=== PATIENT | female | born 1980 | race Caucasian/White ===

== ENCOUNTER 2020-12-12 20:42 | Emergency (ER) | payer MEDICAID ==
[2020-12-12 21:07] LABS: BASOPHILS # (AUTO) 0.1 10^3/uL (0.0-0.1); BASOPHILS % (AUTO) 0.7 %; EOSINOPHILS # (AUTO) 0.4 10^3/uL (0.0-0.7); EOSINOPHILS % (AUTO) 3.7 %; HCT - HEMATOCRIT 44.2 % (37.0-47.0); HGB - HEMOGLOBIN 14.3 g/dL (12.0-16.0); LYMPHOCYTES # (AUTO) 2.4 10^3/uL (1.5-3.5); LYMPHOCYTES % (AUTO) 23.7 %; MEAN CORPUSCULAR HEMOGLOBIN 28.8 pg (27.0-31.0); MEAN CORPUSCULAR HGB CONC 32.4 g/dL (32.0-36.0); MEAN CORPUSCULAR VOLUME 88.9 fL (81.0-99.0); MEAN PLATELET VOLUME 9.8 fL (7.9-10.8); MONOCYTES # (AUTO) 0.6 10^3/uL (0.0-1.0); MONOCYTES % (AUTO) 6.1 %; NEUTROPHILS # (AUTO) 6.7 10^3/uL (1.5-6.6); NEUTROPHILS % (AUTO) 65.5 %; PLT - PLATELET COUNT 343 10^3/uL (130-450); RED BLOOD COUNT 4.97 10^6/uL (4.20-5.40); WHITE BLOOD COUNT 10.3 x10^3/uL (4.8-10.8)
[2020-12-12 21:20] LABS: ALBUMIN 4.3 g/dL (3.2-5.5); ALBUMIN/GLOBULIN RATIO 1.2 (1.0-2.2); BILIRUBIN,TOTAL 0.4 mg/dL (0.2-1.0); CALCIUM 9.1 mg/dL (8.5-10.3); CREATININE 0.9 mg/dL (0.4-1.0); POTASSIUM 4.2 mmol/L (3.5-5.0); TOTAL PROTEIN 7.8 g/dL (6.7-8.2)
[2020-12-12 21:29] LABS: BILIRUBIN,URINE NEGATIVE (NEGATIVE); GLUCOSE, URINE (UA) NEGATIVE (NEGATIVE); KETONES,URINE (UA) NEGATIVE (NEGATIVE); LEUKOCYTE ESTERASE, URINE NEGATIVE (NEGATIVE); NITRITE,URINE NEGATIVE (NEGATIVE); OCCULT BLOOD,URINE NEGATIVE (NEGATIVE); PH,URINE 5.5 PH (5.0-7.5); PROTEIN,URINE NEGATIVE (NEGATIVE); UROBILINOGEN,URINE 0.2 (NORMAL) E.U./dL (NORMAL)
[2020-12-12 21:35] LABS: CLARITY,URINE CLEAR (CLEAR)
[2020-12-12] MEDS ORDERED: KETOROLAC 30 MG/ML VIAL IVP STA (21:56)
[2020-12-12] MEDS ORDERED: IOPAMIDOL-300 100 ML VIAL ONE (22:15)
--- NOTE | 2020-12-12 22:16 | ED Physician Documentation ---
PD HPI ABD PAIN - Stated complaint Stated Complaint: L SIDE ABD/BACK PX - Chief complaint Chief Complaint: Abd Pain - History obtained from History obtained from: Patient - Additional information Additional information: Patient comes emergency department chief complaint of left lower quadrant and flank pain that all day also radiates into her back. She is started somewhere between 2 weeks and a month ago, but has suddenly gotten worse in the last few days. No nausea or vomiting. No hematuria grossly. Patient has had some urinary frequency but no dyspnea.. No change in bowel habits. No history of kidney stones. Patient has a history of ovarian cysts and does still have her ovaries but has had her her uterus removed. Patient is obese and does also have some low back problems. She states that if she lays on her side and stretches her left leg out, that this seems to the feeling of pain. She has felt more of a heaviness in her left lower abdomen than usual, although she does state that since having some any surgeries, she has a lot of scar tissue and that she always has a certain sense of pulling in the area. Patient has a history of an incisional hernia but this has been repaired. No inguinal hernias. No other complaints at this time. Review of Systems Ten Systems: 10 systems reviewed and negative Constitutional: reports: Reviewed and negative Eyes: reports: Reviewed and negative Ears: reports: Reviewed and negative Nose: reports: Reviewed and negative Throat: reports: Reviewed and negative Cardiac: reports: Reviewed and negative Respiratory: reports: Reviewed and negative GI: reports: Abdominal Pain. denies: Nausea, Vomiting, Constipation, Diarrhea : reports: Frequency. 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 - Present Medications Home Medications: Ambulatory Orders Medication Instructions Recorded Confirmed Sertraline HCl [Zoloft] 100 mg PO DAILY 03/23/18 12/12/20 Cyclobenzaprine [Flexeril] 10 mg PO TID PRN #20 tablet 12/12/20 LORazepam [Ativan] 0.5 mg PO DAILY PRN 12/12/20 12/12/20 - Allergies Allergies/Adverse Reactions: Allergies Allergy/AdvReac Type Severity Reaction Status Date / Time No Known Drug Allergies Allergy Verified 12/12/20 20:54 - Social History Does the pt smoke?: Yes Smoking Status: Current every day smoker Does the pt drink ETOH?: Yes Does the pt have substance abuse?: No - Immunizations Immunizations are current?: Yes - POLST Patient has POLST: No PD ED PE NORMAL - Vitals Vital signs reviewed: Yes - General General: Alert and oriented X 3, No acute distress, Well developed/nourished - HEENT HEENT: Atraumatic, PERRL, EOMI, Moist mucous membranes - Neck Neck: Supple, no meningeal sign - Cardiac Cardiac: RRR, No murmur, Strong equal pulses - Respiratory Respiratory: No respiratory distress, Clear bilaterally - Abdomen Abdomen: Soft, Other (Mild tenderness lateral aspect of left lower quadrant, no rebound or guarding. Patient is morbidly obese. Mild left flank tenderness.) - Back Back: Other (Point tenderness over left lumbar paraspinal musculature superiorly toward left CVA. Minimal spinal tenderness in same area. 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 # (Auto) 0.6 Eos # (Auto) 0.4 Baso # (Auto) 0.1 Absolute Nucleated RBC 0.00 Nucleated RBC % 0.0 Sodium 135 Potassium 4.2 Chloride 105 Carbon Dioxide 22 Anion Gap 8.0 BUN 16 Creatinine 0.9 Estimated GFR (MDRD) 69 L Glucose 104 H Calcium 9.1 Total Bilirubin 0.4 AST 18 ALT 20 Alkaline Phosphatase 45 Total Protein 7.8 Albumin 4.3 Globulin 3.5 Albumin/Globulin Ratio 1.2 Lipase 43 Urine Color YELLOW Urine Clarity CLEAR Urine pH 5.5 Ur Specific [place] 1.025 Urine Protein NEGATIVE Urine Glucose (UA) NEGATIVE Urine Ketones NEGATIVE Urine Occult Blood NEGATIVE Urine Nitrite NEGATIVE Urine Bilirubin NEGATIVE Urine Urobilinogen 0.2 (NORMAL) Ur Leukocyte Esterase NEGATIVE Ur Microscopic Review NOT INDICATED Urine Culture Comments NOT INDICATED - Rads (name of study) CT abd/pelvis Radiology: Prelim report reviewed (No acute disease. Scarring of right kidney and soft tissue mass right adrenal gland.), EMP read indepedently, See rad report PD MEDICAL DECISION MAKING - ED course Complexity details: reviewed results, re-evaluated patient, considered differential, d/w patient ED course: Patient's laboratory studies were unremarkable. She was sent for CT scan of the abdomen and pelvis and given a dose of Toradol here. CT scan showed Right renal scarring and a soft tissue mass of the right adrenal gland, both of which were already known to the patient. No acute findings noted by the radiologist. I discussed with the patient that she may have a musculoskeletal etiology of her back pain, given her obesity, history of back problems, and lack of findings to explain patient's symptoms and CT. We have discussed symptomatic management at home and the need for follow-up. The patient does not currently have a PCP but is in the process of getting insurance switched over to this area and will get established as soon as she does. We discussed the usual indications for return. Departure - Departure Disposition: 01 Home, Self Care Clinical Impression: Back pain Qualifiers: Back pain location: low back pain Chronicity: acute Back pain laterality: left Sciatica presence: without sciatica Qualified Code(s): M54.5 - Low back pain Abdominal pain Qualifiers: Abdominal location: left lower quadrant Qualified Code(s): R10.32 - Left lower quadrant pain Condition: Stable Instructions: ED Back Care Tips, ED Exercises Lumbar Muscles, ED Spasm Back No Trauma Prescriptions: Cyclobenzaprine [Flexeril] 10 mg PO TID PRN #20 tablet PRN Reason: Spasms Comments: Your labs and urinalysis look good. Your CT scan did not show any concerning findings. You were found to have a "nonspecific 3 centimeter right adrenal lesion". This is probably what has been seen on your adrenal gland before. No cysts of significant size were noted on your ovaries. No other abnormalities, including no kidney cyst stone, and no hernia, were visualized. You do have a little scarring on the right kidney. Most likely, your symptoms are coming from your back. You may take ibuprofen 800 mg every 8 hours and Flexeril as needed up to 3 times daily, for this. Please get established with primary care so that you can follow-up regarding any further concerns you may have.
[2020-12-12] MEDS ORDERED: IOPAMIDOL-300 100 ML VIAL IVP ONE (22:53)
[2020-12-12] MEDS ORDERED: CYCLOBENZAPRINE 10 MG Prepack 2 PO PRN (23:46)
[2020-12-13 00:02] VITALS: BP 138/87
--- NOTE | 2020-12-13 07:08 | CT Report ---
PROCEDURE: Abdomen/Pelvis W INDICATIONS: LLQ and flank pain CONTRAST: IV CONTRAST: Isovue 300 ml: 100 PO CONTRAST: *NO PO CONTRAST TECHNIQUE: After the administration of contrast, 5 mm thick sections acquired from the diaphragms to the sym physis. 5 mm thick coronal and sagittal reformats were acquired. For radiation dose reduction, the following was used: automated exposure control, adjustment of mA and/or kV according to patient size . COMPARISON: None. FINDINGS: Image quality: Excellent. ABDOMEN: Lung bases: Lung bases are clear. Heart size is normal. Solid organs: Liver and spleen are normal in size and enhancement. Gallbladder is status post estephania cystectomy. Biliary system is non dilated. Pancreas enhances normally. No adrenal nodules. Kidney s demonstrate normal size and enhancement, without hydronephrosis. Nonobstructing right renal stones and focal areas of right renal scarring nonspecific 3 cm right adrenal lesion measures soft tissue d ensity. Recommend follow-up noncontrast study to assess for adenoma. Peritoneum and bowel: Bowel loops demonstrate normal wall thickness and caliber. No free fluid or a ir. Nodes and vessels: No retroperitoneal or mesenteric adenopathy by size criteria. Aorta and inferior vena cava are normal in size. Miscellaneous: No ventral hernias. Periumbilical surgical scar with thickening in the anterior hollie toneum. Likely surgical mesh material. PELVIS: Genitourinary: Bladder wall thickness is normal. Miscellaneous: No inguinal hernias or adenopathy. Bones: No suspicious bony lesions. No vertebral body compression fractures. IMPRESSION: Chronic and incidental findings without acute process. Findings above correspond with preliminary findings by [facility]. Reviewed by: Kentrell Anderson on 12/13/2020 7:07 AM PDT Approved by: Kentrell Anderson on 12/13/2020 7:07 AM PDT Station ID: [id number]
== END 2020-12-13 00:11 | disposition home or self-care (01) ==
LOC: ED 20:42
DX: M54.5 Low back pain (principal); R10.32 Left lower quadrant pain; F17.200 Nicotine dependence, unspecified, uncomplicated
CPT/HCPCS: 36415; 74177; 80053; 81003; 83690; 85025; 96374; 99284; Q9967; 81001; 87086

== ENCOUNTER 2020-12-15 18:42 | Emergency (ER) | payer MEDICAID ==
[2020-12-15 18:47] VITALS: BP 150/90
[2020-12-15] MEDS ORDERED: CHERRY SYRUP 10 ML UDC PO ONE (20:47)
[2020-12-15] MEDS ORDERED: DEXAMETHASONE 10 MG/ML VIAL PO STA (20:47)
[2020-12-15] MEDS ORDERED: PENICILLIN VK 250 MG TABLET PO STA (20:47)
--- NOTE | 2020-12-15 21:03 | ED Physician Documentation ---
History of Present Illness - Stated complaint Stated Complaint: TOOTH PX/FACE SWELLING - Chief complaint Chief Complaint: Heent - History obtained from History obtained from: Patient - History of Present Illness Timing: Today Pain level max: 8 Pain level now: 7 - Additonal information Additional information: 40-year-old female presents to the emergency department with left-sided dental pain that started today. Is worsened throughout the day. Unable to see her dentist. Worse with palpation, eating, drinking. No fevers. No chills. Noted swelling to the left side of her face today. Review of Systems Constitutional: denies: Fever, Chills Respiratory: denies: Cough GI: denies: Abdominal Pain, Nausea, Vomiting, Diarrhea Skin: denies: Rash Musculoskeletal: denies: Neck pain, Back pain PD PAST MEDICAL HISTORY - Past Medical History Past Medical History: Yes Cardiovascular: None Respiratory: None Neuro: None Endocrine/Autoimmune: None GI: None Psych: Depression, Anxiety, Post traumatic stress disorder - Past Surgical History Past Surgical History: Yes General: Other /AMBULATORY CARE: Hysterectomy - Present Medications Home Medications: Ambulatory Orders Medication Instructions Recorded Confirmed Sertraline HCl [Zoloft] 100 mg PO DAILY 03/23/18 12/12/20 Cyclobenzaprine [Flexeril] 10 mg PO TID PRN #20 tablet 12/12/20 LORazepam [Ativan] 0.5 mg PO DAILY PRN 12/12/20 12/12/20 Ibuprofen [Motrin] 800 mg PO Q8H PRN #30 tablet 12/15/20 Penicillin V Potassium 500 mg PO Q6HR #40 tablet 12/15/20 - Allergies Allergies/Adverse Reactions: Allergies Allergy/AdvReac Type Severity Reaction Status Date / Time No Known Drug Allergies Allergy Verified 12/15/20 18:45 - Social History Does the pt smoke?: Yes Smoking Status: Current every day smoker Does the pt drink ETOH?: Yes Does the pt have substance abuse?: No - Immunizations Immunizations are current?: Yes - POLST Patient has POLST: No PD ED PE NORMAL - Vitals Vital signs reviewed: Yes - General General: Alert and oriented X 3, No acute distress - HEENT HEENT: Moist mucous membranes, Other (Normal phonation. No trismus. No stridor. No sublingual swelling. Mild swelling to the left cheek. No facial cellulitis. Tenderness over the left first lower premolar.) - Neck Neck: Supple, no meningeal sign, No adenopathy - Cardiac Cardiac: RRR - Respiratory Respiratory: No respiratory distress, Clear bilaterally - Derm Derm: Warm and dry - Neuro Neuro: Alert and oriented X 3 - Psych Psych: Normal mood, Normal affect Results - Vitals Vitals: Vital Signs - 24 hr 12/15/20 18:45 Temperature 36.5 C Heart Rate 84 Respiratory 16 Rate Blood Pressure 150/90 H O2 Saturation 97 Oxygen O2 Source Room air PD MEDICAL DECISION MAKING - ED course Complexity details: considered differential, d/w patient ED course: Patient with dental caries. Will place on antibiotics and pain medication for home. We will have her follow-up with her dentist this week. No drainable abscess. No Ludwigs angina. Patient counseled regarding signs and symptoms for which I believe and urgent re-evaluation would be necessary. Patient with good understanding of and agreement to plan and is comfortable going home at this time This document was made in part using voice recognition software. While efforts are made to proofread this document, sound alike and grammatical errors may occur. Departure - Departure Disposition: 01 Home, Self Care Clinical Impression: Dental caries Condition: Good Instructions: ED Tooth Pain Follow-Up: your,dentist this week [Other] Prescriptions: Penicillin V Potassium 500 mg PO Q6HR #40 tablet Ibuprofen [Motrin] 800 mg PO Q8H PRN #30 tablet PRN Reason: PAIN &/OR FEVER Comments: Your prescriptions were sent to [facility] in [place]. Please follow-up with your doctor for further care. Return if you worsen. Discharge Date/Time: 12/15/20 21:05
== END 2020-12-15 21:05 | disposition home or self-care (01) ==
LOC: ED 18:42
DX: K02.9 Dental caries, unspecified (principal); F17.200 Nicotine dependence, unspecified, uncomplicated
CPT/HCPCS: 99282; 99284; A9270

== ENCOUNTER 2021-12-04 09:51 | Outpatient (CLI) | payer MEDICAID ==
[2021-12-04 12:51] LABS: BASOPHILS # (AUTO) 0.1 10^3/uL (0.0-0.1); BASOPHILS % (AUTO) 0.7 %; EOSINOPHILS # (AUTO) 0.2 10^3/uL (0.0-0.7); EOSINOPHILS % (AUTO) 3.3 %; HCT - HEMATOCRIT 42.9 % (37.0-47.0); HGB - HEMOGLOBIN 14.3 g/dL (12.0-16.0); LYMPHOCYTES # (AUTO) 1.6 10^3/uL (1.5-3.5); LYMPHOCYTES % (AUTO) 24.3 %; MEAN CORPUSCULAR HEMOGLOBIN 29.4 pg (27.0-31.0); MEAN CORPUSCULAR HGB CONC 33.3 g/dL (32.0-36.0); MEAN CORPUSCULAR VOLUME 88.1 fL (81.0-99.0); MEAN PLATELET VOLUME 11.9 fL (7.9-10.8); MONOCYTES # (AUTO) 0.5 10^3/uL (0.0-1.0); MONOCYTES % (AUTO) 6.9 %; NEUTROPHILS # (AUTO) 4.3 10^3/uL (1.5-6.6); NEUTROPHILS % (AUTO) 64.7 %; PLT - PLATELET COUNT 231 10^3/uL (130-450); RED BLOOD COUNT 4.87 10^6/uL (4.20-5.40); RED CELL DISTRIBUTION WIDTH 12.9 % (12.0-15.0); WHITE BLOOD COUNT 6.7 x10^3/uL (4.8-10.8)
[2021-12-04 14:06] LABS: THYROID STIMULATING HORMONE 1.41 uIU/mL (0.34-5.60)
[2021-12-04 14:51] LABS: ALBUMIN 4.4 g/dL (3.2-5.5); ALBUMIN/GLOBULIN RATIO 1.4 (1.0-2.2); ALKALINE PHOSPHATASE 41 IU/L (42-121); ALT ALANINE AMINOTRANSFERASE 23 IU/L (10-60); AST ASPARTATE AMINOTRANSFERASE 18 IU/L (10-42); BILIRUBIN,TOTAL 0.6 mg/dL (0.2-1.0); BUN - BLOOD UREA NITROGEN 14 mg/dL (6-20); CALCIUM 9.8 mg/dL (8.5-10.3); CARBON DIOXIDE - CO2 27 mmol/L (21-32); CHLORIDE 104 mmol/L (101-111); CHOL/HDL RATIO 3.1 (<4.4); CHOLESTEROL 185 mg/dL; CREATININE 0.8 mg/dL (0.4-1.0); GFR - MDRD 79 (>89); GLUCOSE 107 mg/dL (70-100); HDL CHOLESTEROL 60 mg/dL; LDL CHOLESTEROL,CALCULATED 108 mg/dL; LDL/HDL RATIO 1.8 (<4.4); POTASSIUM 4.5 mmol/L (3.5-5.0); SODIUM 138 mmol/L (135-145); TOTAL PROTEIN 7.6 g/dL (6.7-8.2); TRIGLYCERIDES 87 mg/dL; VLDL CHOLESTEROL 17 mg/dL
[2021-12-04 16:34] LABS: ESTIMATED AVERAGE GLUCOSE 117 mg/dL (70-100); HEMOGLOBIN A1c% 5.7 % (4.27-6.07)
== END 2021-12-04 09:52 | disposition home or self-care (01) ==
LOC: LAB.N 09:51
PROVIDERS: ATTEND Nurse Practitioner Family
DX: R53.83 Other fatigue (principal); R53.81 Other malaise; E55.9 Vitamin D deficiency, unspecified; Z13.220 Encounter for screening for lipoid disorders; Z68.41 Body mass index [BMI] 40.0-44.9, adult; Z13.1 Encounter for screening for diabetes mellitus
CPT/HCPCS: 36415; 80053; 80061; 82306; 83036; 83721; 84443; 85025

== ENCOUNTER 2022-03-24 08:00 | Outpatient (CLI) | payer MEDICAID ==
[2022-03-24 20:41] LABS: HCT - HEMATOCRIT 43.8 % (37.0-47.0); HGB - HEMOGLOBIN 14.4 g/dL (12.0-16.0); MEAN CORPUSCULAR HEMOGLOBIN 28.5 pg (27.0-31.0); MEAN CORPUSCULAR HGB CONC 32.9 g/dL (32.0-36.0); MEAN CORPUSCULAR VOLUME 86.7 fL (81.0-99.0); MEAN PLATELET VOLUME 11.3 fL (7.9-10.8); RED BLOOD COUNT 5.05 10^6/uL (4.20-5.40); RED CELL DISTRIBUTION WIDTH 12.8 % (12.0-15.0); WHITE BLOOD COUNT 8.7 x10^3/uL (4.8-10.8)
[2022-03-24 20:49] LABS: CALCIUM 9.6 mg/dL (8.5-10.3); POTASSIUM 4.1 mmol/L (3.5-5.0)
== END 2022-03-24 23:59 | disposition home or self-care (01) ==
LOC: LAB.N 08:00
PROVIDERS: ATTEND Physician Assistant Medical
DX: N20.9 Urinary calculus, unspecified (principal)
CPT/HCPCS: 36415; 80048; 85027; 87086; 87181

== ENCOUNTER 2022-04-17 09:59 | Emergency (ER) | payer MEDICAID ==
--- NOTE | 2022-04-17 10:08 | ED Physician Documentation ---
PD HPI BACK PAIN - Stated complaint Stated Complaint: BACK PX - History obtained from History obtained from: Patient - History of Present Illness Timing - onset: How many weeks ago (has had right flank to abd pain for a few weeks. Seen at [facility] Mar 31 and Rx Tamsulosin presuming kidney stone. Had had ureteral stone Dx couple of months ago per patient, presumed not passed as yet. Had increased degree of pain since yesterday.) Timing - duration: Days, Weeks Timing - details: Gradual onset, Waxing and waning Location: Mid, Right Quality: Pain, Aching Associated symptoms: No: Fever, Weakness, Numbness Worsened by: No: Movement Contributing factors: Twisting. No: Lifting Similar symptoms before: Diagnosis (feels similar to prior kidney stones. Though review of prior visits 2017 and 2019 showed back/abd pain with negative ultrasounds and CT scan results.) Recently seen: Clinic (walk in clinic Mar 31.) Review of Systems Constitutional: denies: Fever, Chills GI: reports: Abdominal Pain : denies: Dysuria, Frequency, Discharge Skin: denies: Rash Musculoskeletal: reports: Back pain. 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 - Present Medications Home Medications: Ambulatory Orders Medication Instructions Recorded Confirmed Sertraline HCl [Zoloft] 100 mg PO DAILY 03/23/18 12/12/20 Cyclobenzaprine [Flexeril] 10 mg PO TID PRN #20 tablet 12/12/20 LORazepam [Ativan] 0.5 mg PO DAILY PRN 12/12/20 12/12/20 Ibuprofen [Motrin] 800 mg PO Q8H PRN #30 tablet 12/15/20 Penicillin V Potassium 500 mg PO Q6HR #40 tablet 12/15/20 HYDROcod/ACETAM 5/325 [[place] 5/325] 1 ea PO Q6H PRN #18 tablet 04/17/22 HYDROcod/ACETAM 5/325 [[place] 5/325] 1 ea PO Q6H PRN #18 tablet 04/17/22 Meloxicam [Mobic] 7.5 mg PO BID 10 Days #20 tablet 04/17/22 Ondansetron Odt [Zofran] 4 mg TL Q6H PRN #10 tablet 04/17/22 tiZANidine [Zanaflex] 4 mg PO Q8H PRN #25 tablet 04/17/22 - Allergies Allergies/Adverse Reactions: Allergies Allergy/AdvReac Type Severity Reaction Status Date / Time No Known Drug Allergies Allergy Verified 04/17/22 10:09 - Social History Does the pt smoke?: Yes Smoking Status: Current every day smoker Does the pt drink ETOH?: Yes Does the pt have substance abuse?: No - Immunizations Immunizations are current?: Yes - POLST Patient has POLST: No PD ED PE NORMAL - Vitals Vital signs reviewed: Yes - General General: Alert and oriented X 3, Well developed/nourished, Other (appears in pain. She did drive herself to ER so not wanting to give opioids. ) - Neck Neck: Supple, no meningeal sign, No adenopathy - Cardiac Cardiac: RRR, No murmur - Respiratory Respiratory: Clear bilaterally - Abdomen Abdomen: Normal bowel sounds, Soft, Non distended, Other (some tender RUQ to right flank area and CVA to percussion. No midline tenderness. No redness, rash, sores. ) - Derm Derm: Normal color, Warm and dry, No rash - Extremities Extremities: No edema, No calf tenderness / cord - Neuro Neuro: Alert and oriented X 3, No motor deficit, Normal speech Results - Vitals Vitals: Vital Signs - 24 hr 04/17/22 12:56 Heart Rate 88 Respiratory 18 Rate Blood Pressure 163/111 H O2 Saturation 98 Oxygen O2 Source Room air - Labs Labs: Laboratory Tests 04/17/22 04/17/22 04/17/22 10:12 10:17 10:17 WBC 9.7 RBC 5.03 Hgb 14.2 Hct 43.7 MCV 86.9 MCH 28.2 MCHC 32.5 RDW 12.9 Plt Count 338 MPV 9.7 Neut # (Auto) 7.2 H Lymph # (Auto) 1.6 [place] # (Auto) 0.5 Eos # (Auto) 0.3 Baso # (Auto) 0.1 Absolute Nucleated RBC 0.00 Nucleated RBC % 0.0 Sodium 135 Potassium 3.6 Chloride 101 Carbon Dioxide 23 Anion Gap 11.0 BUN 13 Creatinine 0.9 Estimated GFR (MDRD) 69 L Glucose 112 H Calcium 9.4 Total Bilirubin 0.6 AST 17 ALT 21 Alkaline Phosphatase 46 Total Protein 7.6 Albumin 4.2 Globulin 3.4 Albumin/Globulin Ratio 1.2 Lipase 36 Urine Color DARK YELLOW Urine Clarity CLEAR Urine pH 6.0 Ur Specific [place] >=1.030 H Urine Protein NEGATIVE Urine Glucose (UA) NEGATIVE Urine Ketones NEGATIVE Urine Occult Blood NEGATIVE Urine Nitrite NEGATIVE Urine Bilirubin NEGATIVE Urine Urobilinogen 0.2 (NORMAL) Ur Leukocyte Esterase NEGATIVE Ur Microscopic Review NOT INDICATED Urine Culture Comments NOT INDICATED Urine HCG, Qual NEGATIVE - Rads (name of study) abd/pelvic CT Radiology: Prelim report reviewed, See rad report (4 mm right renal stone. No ureteral stones nor hydronephorisis. Normal appendix. surgically absent GB. ) PD Medical Decision Making - ED course Complexity details: reviewed old records (no SOFYA form for prior opioid scripts. ), reviewed results, considered differential (pain character and location sounds like kidney stone. Review of prior visits from years ago and CT report showed though renal stone and not ureteral stone in the past. She says she had Dx of ureteral stone couple months ago at other facility. Those records not available at this time.), d/w patient Reviewed Lab Results: UA without signs of infection. CT abd/pelvis with 4 mm renal stone but no ureteral stones. The prior ureteral stone is gone. Normal appendix. No other acute abnormality. Normal lipase and LFTs. Unclear the cause of her back pain. Consider muscular or thoracic nerve root. Drug Therapy Requiring Monitoring for Toxicity: prescribed meloxicam and hydrocodone for pain. Presume musculoskeletal pain. Cautioned about side effects and potential constipation as well. No history of ulcers/PUD nor renal insufficiency, so short course NSAIDs should be okay. ED course: The patient called and states the prescriptions were not at [facility] where she is trying to pick them up. Her preferred pharmacy had been stated [facility] but she would like them now transmitted to [facility]. I canceled the prior ones and retransmitted now to [facility] instead. Departure - Departure Disposition: 01 Home, Self Care Clinical Impression: Nausea Back pain Qualifiers: Back pain location: low back pain Chronicity: acute Back pain laterality: unspecified Sciatica presence: without sciatica Qualified Code(s): M54.50 - Low back pain, unspecified Condition: Stable Record reviewed to determine appropriate education?: Yes Instructions: ED Low Back Pain Injury Prescriptions: Meloxicam [Mobic] 7.5 mg PO BID 10 Days #20 tablet HYDROcod/ACETAM 5/325 [[place] 5/325] 1 ea PO Q6H PRN #18 tablet PRN Reason: Pain HYDROcod/ACETAM 5/325 [[place] 5/325] 1 ea PO Q6H PRN #18 tablet PRN Reason: Pain tiZANidine [Zanaflex] 4 mg PO Q8H PRN #25 tablet PRN Reason: Spasms Ondansetron Odt [Zofran] 4 mg TL Q6H PRN #10 tablet PRN Reason: Nausea / Vomiting Comments: Your urine test is good without any signs of urinary tract infection/kidney infection. Your CT scan shows a's 4 mm stone in the kidney but not in a location to cause pain. There were no stones in the ureter so the previously identified ureteral kidney stone has passed. The CT scan did not identify any other obvious cause for the pain. With that in mind, I would presume your pain is more musculoskeletal back pain. As such I would treat it with anti-inflammatories and muscle relaxant. I think your nausea may be from the Flomax that had been prescribed. You can discontinue that since there is not a ureteral kidney stone anymore. Add Tylenol every 4-6 hours if needed for pain or hydrocodone every 6 hours if needed for worse pain. Heat and stretching for the back. Consider massage or chiropractic as well. Recheck or follow-up if not improving well over the next several days and resolved by 5 to 7 days. I sent your prescriptions to your preferred pharmacy. I am prescribing a short course of narcotic pain medication for you. These are potentially dangerous and addictive medications that should be used carefully. These medications may constipate you. Take an [id number] stool softener such as docusate twice daily with plenty of water while taking these m edications. If you go 24 hours without a bowel movement, take [id number] MiraLAX, per package instructions. Do not drink or drive while taking these medications. If you received narcotic or sedating medications while in the emergency department do not drive for 24 hours. Store this medication in a safe, secure place and out of reach of children. It is a violation of federal law to give or sell this medication to another person or to use in a manner other than prescribed. The ED will not refill narcotic prescriptions, including prescriptions lost or stolen. You can dispose of unwanted medications at the [facility]'s office or at several pharmacies such as [facility]. Discharge Date/Time: 04/17/22 12:56
[2022-04-17 10:09] VITALS: BP 163/111
[2022-04-17 10:22] LABS: BASOPHILS # (AUTO) 0.1 10^3/uL (0.0-0.1); BASOPHILS % (AUTO) 0.5 %; EOSINOPHILS # (AUTO) 0.3 10^3/uL (0.0-0.7); EOSINOPHILS % (AUTO) 2.6 %; HCT - HEMATOCRIT 43.7 % (37.0-47.0); HGB - HEMOGLOBIN 14.2 g/dL (12.0-16.0); LYMPHOCYTES # (AUTO) 1.6 10^3/uL (1.5-3.5); LYMPHOCYTES % (AUTO) 16.2 %; MEAN CORPUSCULAR HEMOGLOBIN 28.2 pg (27.0-31.0); MEAN CORPUSCULAR HGB CONC 32.5 g/dL (32.0-36.0); MEAN CORPUSCULAR VOLUME 86.9 fL (81.0-99.0); MEAN PLATELET VOLUME 9.7 fL (7.9-10.8); MONOCYTES # (AUTO) 0.5 10^3/uL (0.0-1.0); MONOCYTES % (AUTO) 5.6 %; NEUTROPHILS # (AUTO) 7.2 10^3/uL (1.5-6.6); NEUTROPHILS % (AUTO) 74.8 %; PLT - PLATELET COUNT 338 10^3/uL (130-450); RED BLOOD COUNT 5.03 10^6/uL (4.20-5.40); RED CELL DISTRIBUTION WIDTH 12.9 % (12.0-15.0); WHITE BLOOD COUNT 9.7 x10^3/uL (4.8-10.8)
[2022-04-17 10:31] LABS: BILIRUBIN,URINE NEGATIVE (NEGATIVE); CLARITY,URINE CLEAR (CLEAR); GLUCOSE, URINE (UA) NEGATIVE (NEGATIVE); KETONES,URINE (UA) NEGATIVE (NEGATIVE); LEUKOCYTE ESTERASE, URINE NEGATIVE (NEGATIVE); NITRITE,URINE NEGATIVE (NEGATIVE); OCCULT BLOOD,URINE NEGATIVE (NEGATIVE); PROTEIN,URINE NEGATIVE (NEGATIVE); UROBILINOGEN,URINE 0.2 (NORMAL) E.U./dL (NORMAL)
[2022-04-17 10:34] LABS: HCG UR QUAL NEGATIVE
[2022-04-17 10:36] LABS: ALBUMIN 4.2 g/dL (3.2-5.5); ALBUMIN/GLOBULIN RATIO 1.2 (1.0-2.2); BILIRUBIN,TOTAL 0.6 mg/dL (0.2-1.0); CALCIUM 9.4 mg/dL (8.5-10.3); CREATININE 0.9 mg/dL (0.4-1.0); POTASSIUM 3.6 mmol/L (3.5-5.0); TOTAL PROTEIN 7.6 g/dL (6.7-8.2)
[2022-04-17] MEDS ORDERED: ACETAMINOPHEN 325 MG TABLET PO STA (10:36)
[2022-04-17] MEDS ORDERED: SODIUM CHLORIDE 0.9% 1,000 ML IV STA (10:36)
[2022-04-17] MEDS ORDERED: ONDANSETRON 4 MG/2 ML VIAL IVP STA (10:36)
[2022-04-17] MEDS ORDERED: KETOROLAC 15 MG/ML VIAL IVP STA (10:36)
[2022-04-17] MEDS ORDERED: LIDOCAINE-MPF 2% 9 ML in SODIUM CHLORIDE 0.9% 50 ML IV STA (10:37)
--- OUTSIDE RECORDS SUMMARY | 2022-04-17 11:30 | EXTERNAL MEDICAL SUMMARY RPT | Continuity of Care Document ---
:1980 Author Organization [facility] Address [address] [place] [address] Phone Care Team Providers Name Role Phone David aHll Unavailable Unavailable Allergies and Intolerances date description facility type (no date) No Known Drug Allergies [facility] (unkn own) Encounters No information. Functional Status No information. Immunizations No information. Medications No information. Problems date description facility 2022-03-19 00:00 Renal colic on right side [facility] n[facility]il Procedures date description facility 2022-03-19 00:00 CT kidney, ureter and bladder [facility] ospital Results/Labs test date author facility value unit interpret ation Result panel 1 (unknown) (no (unknown) (unknown) (no value) (units (unk nown) date) unknown) (unknown) (no (unknown) (unknown) [id number] (units (unkn own) date) unknown) (unknown) (no (unknown) (unknown) 1. There is a 3 (units (unknown) date) mm stone within unknown) the bladder near the right UVJ, compatible with (unknown) (no (unknown) (unknown) 03/19/22 (units (unkno wn) date) unknown) (unknown) (no (unknown) (unknown) [address] [place] [address] (units (unknown) date) unknown) (unknown) (no (unknown) (unknown) 2. Multiple (units (un known) date) small-3 mm unknown) nonobstructive right renal calculi. (unknown) (no (unknown) (unknown) 3. A 2.7 x 3.3 cm (units (unknown) date) right adrenal unknown) adenoma. (unknown) (no (unknown) (unknown) 4. Hepatic (units (unk nown) date) steatosis. unknown) (unknown) (no (unknown) (unknown) ABDOMEN: (units (unkno wn) date) unknown) (unknown) (no (unknown) (unknown) Abdominal Nodes: (units (unknown) date) No enlarged unknown) retroperitoneal or mesenteric lymph nodes. (unknown) (no (unknown) (unknown) Accession Number: (units (unknown) date) [id number] unknown) (unknown) (no (unknown) (unknown) Adrenal Glands: (units (unknown) date) There is a 2.7 x unknown) 3.3 cm right adrenal nodule demonstrating CT (unknown) (no (unknown) (unknown) Age/Sex: 41 / F (units (unknown) date) Date of Service: unknown) (unknown) (no (unknown) (unknown) [place], [place] (units ( unknown) date) [id number] unknown) (unknown) (no (unknown) (unknown) Approved by: (units (u nknown) date) Sabrina Mcleod M.D. on unknown) 03/19/2022 at 10:17 (unknown) (no (unknown) (unknown) Axial sections (units (unknown) date) were acquired from unknown) the lung bases to the pubic symphysis. (unknown) (no (unknown) (unknown) Biliary ducts: (units (unknown) date) Unremarkable. unknown) (unknown) (no (unknown) (unknown) Bladder: Normal (units (unknown) date) wall thickness. unknown) There is a 3 mm stone within the ureter near (unknown) (no (unknown) (unknown) Bones: (units (unkno wn) date) Unremarkable. unknown) (unknown) (no (unknown) (unknown) COMPARISON: None. (units (unknown) date) unknown) (unknown) (no (unknown) (unknown) CT Scan Report (units (unknown) date) unknown) (unknown) (no (unknown) (unknown) Coronal and (units (un known) date) unknown) (unknown) (no (unknown) (unknown) : 1980 (units (unknown) date) Acct:[id number] unknown) (unknown) (no (unknown) (unknown) Dictated by: (units (u nknown) date) Sabrina Mcleod M.D. on unknown) 03/19/2022 at 8:57 (unknown) (no (unknown) (unknown) FINDINGS: (units (unkn own) date) unknown) (unknown) (no (unknown) (unknown) Gallbladder: (units (u nknown) date) Unremarkable. unknown) (unknown) (no (unknown) (unknown) Heart: No (units (unkn own) date) significant unknown) findings. (unknown) (no (unknown) (unknown) IMPRESSION: (units (un known) date) unknown) (unknown) (no (unknown) (unknown) INDICATIONS: (units (u nknown) date) Right side flank unknown) pain eval for stone (unknown) (no (unknown) (unknown) Image quality: (units (unknown) date) Excellent. unknown) (unknown) (no (unknown) (unknown) [facility] (units (unknown) date) unknown) (unknown) (no (unknown) (unknown) Left Kidney: No (units (unknown) date) stones or unknown) hydronephrosis. (unknown) (no (unknown) (unknown) Left Ureter: No (units (unknown) date) hydroureter. unknown) (unknown) (no (unknown) (unknown) Liver: Prominent (units (unknown) date) in size. Mild unknown) hepatic steatosis. (unknown) (no (unknown) (unknown) Loc: ED (units (unkno wn) date) unknown) (unknown) (no (unknown) (unknown) Lung bases: (units (un known) date) Unremarkable. unknown) (unknown) (no (unknown) (unknown) Miscellaneous: No (units (unknown) date) inguinal hernias unknown) are seen. (unknown) (no (unknown) (unknown) No significant (units (unknown) date) discrepancy with unknown) the administrative judge radiology preliminary report. (unknown) (no (unknown) (unknown) Normal (units (unkno wn) date) unknown) (unknown) (no (unknown) (unknown) Ordering (units (unkno wn) date) Provider: unknown) Manuel Toure D.O. (unknown) (no (unknown) (unknown) PELVIS: (units (unkno wn) date) unknown) (unknown) (no (unknown) (unknown) PROCEDURE: CT (units ( unknown) date) KIDNEY URETER unknown) BLADDER (KUB) (unknown) (no (unknown) (unknown) Pancreas: (units (unkn own) date) Unremarkable. unknown) (unknown) (no (unknown) (unknown) Patient: (units (unkno wn) date) Claudette Smith A unknown) MR#: [id number] (unknown) (no (unknown) (unknown) Pelvic Nodes: (units ( unknown) date) Unremarkable. unknown) (unknown) (no (unknown) (unknown) Pelvic Organs: (units (unknown) date) Unremarkable. unknown) (unknown) (no (unknown) (unknown) Peritoneum: No (units (unknown) date) abnormal unknown) intraperitoneal fluid. No free air. (unknown) (no (unknown) (unknown) Procedure: CT (units ( unknown) date) kidney ureter unknown) bladder (KUB) (unknown) (no (unknown) (unknown) Right Kidney: (units ( unknown) date) There are multiple unknown) small stones measuring 1-3 mm in right (unknown) (no (unknown) (unknown) Right Ureter: (units ( unknown) date) Mild hydroureter. unknown) No ureteral stones. (unknown) (no (unknown) (unknown) Signed (units (unkno wn) date) unknown) (unknown) (no (unknown) (unknown) Spleen: (units (unkno wn) date) Unremarkable. unknown) (unknown) (no (unknown) (unknown) Stomach and (units (un known) date) Bowel: Stomach, unknown) small bowel loops, and colon are unremarkable. (unknown) (no (unknown) (unknown) TECHNIQUE: (units (unk nown) date) unknown) (unknown) (no (unknown) (unknown) URINARY: (units (unkno wn) date) unknown) (unknown) (no (unknown) (unknown) UVJ. (units (unkno wn) date) unknown) (unknown) (no (unknown) (unknown) Ventral Wall: (units ( unknown) date) Probable prior unknown) ventral hernia repair. Mild fatty infiltration (unknown) (no (unknown) (unknown) Vessels: Aorta (units (unknown) date) and inferior vena unknown) cava are normal in size. (unknown) (no (unknown) (unknown) appendix. (units (unkn own) date) unknown) (unknown) (no (unknown) (unknown) automated (units (unkn own) date) exposure control, unknown) adjustment of mA and/or kV according to patient (unknown) (no (unknown) (unknown) compatible with a (units (unknown) date) benign adenoma. unknown) Left adrenal is normal. (unknown) (no (unknown) (unknown) density (units (unkno wn) date) unknown) (unknown) (no (unknown) (unknown) kidney. Mild (units (u nknown) date) unknown) (unknown) (no (unknown) (unknown) of the (units (unkno wn) date) unknown) (unknown) (no (unknown) (unknown) passed a stone. (units (unknown) date) There is mild unknown) right hydronephrosis and hydroureter. (unknown) (no (unknown) (unknown) recently (units (unkno wn) date) unknown) (unknown) (no (unknown) (unknown) rectus abdominus (units (unknown) date) muscles. unknown) (unknown) (no (unknown) (unknown) right (units (unkno wn) date) hydronephrosis is unknown) present. (unknown) (no (unknown) (unknown) sagittal (units (unkno wn) date) reformats were unknown) performed. For radiation dose reduction, the following (unknown) (no (unknown) (unknown) size. (units (unkno wn) date) unknown) (unknown) (no (unknown) (unknown) the right (units (unkn own) date) unknown) (unknown) (no (unknown) (unknown) was used: (units (unkn own) date) unknown) Result panel 2 (unknown) (no (unknown) (unknown) (no value) (units (unk nown) date) unknown) (unknown) (no (unknown) (unknown) [id number] (units (unkno wn) date) unknown) (unknown) (no (unknown) (unknown) 04:02 (units (unkno wn) date) unknown) (unknown) (no (unknown) (unknown) 10 mg PO Q6H (units (u nknown) date) PRN (Reason: unknown) pain) Qty: 14 0RF (unknown) (no (unknown) (unknown) 03/19/22 04:27 (units (unknown) date) unknown) (unknown) (no (unknown) (unknown) 03/19/22 (units (unkno wn) date) unknown) (unknown) (no (unknown) (unknown) Age/Sex: 41 / F (units (unknown) date) unknown) (unknown) (no (unknown) (unknown) Allergies (units (unkn own) date) unknown) (unknown) (no (unknown) (unknown) Allergy/AdvReac (units (unknown) date) Type Severity unknown) Reaction Status Date / Time (unknown) (no (unknown) (unknown) Bedside Urine (units ( unknown) date) Bilirubin - unknown) Negative (unknown) (no (unknown) (unknown) Bedside Urine (units ( unknown) date) Glucose Negative unknown) (unknown) (no (unknown) (unknown) Bedside Urine (units ( unknown) date) Ketone - unknown) Negative (unknown) (no (unknown) (unknown) Bedside Urine (units ( unknown) date) Leukocytes - unknown) Negative (unknown) (no (unknown) (unknown) Bedside Urine (units ( unknown) date) Nitrite - unknown) Negative (unknown) (no (unknown) (unknown) Bedside Urine (units ( unknown) date) Occult Blood unknown) (unknown) (no (unknown) (unknown) Bedside Urine (units ( unknown) date) Protein - unknown) Negative (unknown) (no (unknown) (unknown) Bedside Urine (units ( unknown) date) Urobilinogen - unknown) Negative (unknown) (no (unknown) (unknown) Bedside Urine (units ( unknown) date) pH 6.0 unknown) (unknown) (no (unknown) (unknown) Blood Pressure (units (unknown) date) 124/86 03/19/22 unknown) 04:02 (unknown) (no (unknown) (unknown) Blood Pressure (units (unknown) date) 124/86 unknown) (unknown) (no (unknown) (unknown) CT kidney (units (unkn own) date) ureter bladder unknown) (KUB) Stat (unknown) (no (unknown) (unknown) Chief (units (unkno wn) date) complaint: unknown) Urogenital-Femal e (unknown) (no (unknown) (unknown) Course (units (unkno wn) date) unknown) (unknown) (no (unknown) (unknown) : 1980 (units (unknown) date) Acct:[id number] unknown) (unknown) (no (unknown) (unknown) Date of (units (unkno wn) date) Service: unknown) 03/19/22 (unknown) (no (unknown) (unknown) Departure (units (unkn own) date) unknown) (unknown) (no (unknown) (unknown) Discharge Plan (units (unknown) date) unknown) (unknown) (no (unknown) (unknown) ED Orders (units (unkn own) date) unknown) (unknown) (no (unknown) (unknown) ER Physician: (units ( unknown) date) Manuel Toure unknown) D.O. (unknown) (no (unknown) (unknown) Emergency (units (unkn own) date) Report unknown) (unknown) (no (unknown) (unknown) Esterase (units (unkno wn) date) unknown) (unknown) (no (unknown) (unknown) Exam (units (unkno wn) date) unknown) (unknown) (no (unknown) (unknown) General (units (unkno wn) date) unknown) (unknown) (no (unknown) (unknown) HPI - General (units ( unknown) date) Adult unknown) (unknown) (no (unknown) (unknown) Initial Vital (units ( unknown) date) Signs unknown) (unknown) (no (unknown) (unknown) Initial Vital (units ( unknown) date) Signs: unknown) (unknown) (no (unknown) (unknown) [facility] (units (unknown) date) [address] unknown) [place] [address] (unknown) (no (unknown) (unknown) Lab Data (units (unkno wn) date) unknown) (unknown) (no (unknown) (unknown) Labs: (units (unkno wn) date) unknown) (unknown) (no (unknown) (unknown) Medical (units (unkno wn) date) Decision Making unknown) (unknown) (no (unknown) (unknown) Medication (units (unk nown) date) Instructions unknown) Recorded (unknown) (no (unknown) (unknown) Mode of (units (unkno wn) date) arrival: unknown) Ambulatory (unknown) (no (unknown) (unknown) No Action (units (unkn own) date) unknown) (unknown) (no (unknown) (unknown) No Known Drug (units ( unknown) date) Allergies unknown) Allergy Verified 10/24/21 20:35 (unknown) (no (unknown) (unknown) Ordered: (units (unkno wn) date) unknown) (unknown) (no (unknown) (unknown) Orders (units (unkno wn) date) unknown) (unknown) (no (unknown) (unknown) Oxygen Delivery (units (unknown) date) Method 03/19/22 unknown) 04:02 (unknown) (no (unknown) (unknown) Oxygen Delivery (units (unknown) date) Method Room Air unknown) (unknown) (no (unknown) (unknown) Patient History (units (unknown) date) unknown) (unknown) (no (unknown) (unknown) Patient: (units (unkno wn) date) Claudette Smith unknown) MR#: [id number] (unknown) (no (unknown) (unknown) Point of Care (units ( unknown) date) Testing unknown) (unknown) (no (unknown) (unknown) Point of care (units ( unknown) date) testing: unknown) (unknown) (no (unknown) (unknown) Test (units (unknown) date) Results Negative unknown) (unknown) (no (unknown) (unknown) Prescriptions: (units (unknown) date) unknown) (unknown) (no (unknown) (unknown) Previous Rx's (units ( unknown) date) unknown) (unknown) (no (unknown) (unknown) Pulse Oximetry (units (unknown) date) 97 03/19/22 unknown) 04:02 (unknown) (no (unknown) (unknown) Pulse Oximetry (units (unknown) date) 97 unknown) (unknown) (no (unknown) (unknown) Pulse Rate 78 (units ( unknown) date) 03/19/22 04:02 unknown) (unknown) (no (unknown) (unknown) Pulse Rate 78 (units ( unknown) date) unknown) (unknown) (no (unknown) (unknown) Related Data (units (u nknown) date) unknown) (unknown) (no (unknown) (unknown) Respiratory (units (un known) date) Rate 20 03/19/22 unknown) 04:02 (unknown) (no (unknown) (unknown) Respiratory (units (un known) date) Rate 20 unknown) (unknown) (no (unknown) (unknown) Signed By: (units (unk nown) date) unknown) (unknown) (no (unknown) (unknown) Smoking Status: (units (unknown) date) Current every unknown) day smoker (unknown) (no (unknown) (unknown) Social History (units (unknown) date) (Reviewed unknown) 10/24/21 @ 23:14 by David Hall DO) (unknown) (no (unknown) (unknown) Source: patient (units (unknown) date) unknown) (unknown) (no (unknown) (unknown) Stated (units (unkno wn) date) complaint: abd unknown) pain, back pain (unknown) (no (unknown) (unknown) Substance Use (units ( unknown) date) Type: marijuana unknown) (unknown) (no (unknown) (unknown) Temperature (units (un known) date) 97.6 F 03/19/22 unknown) 04:02 (unknown) (no (unknown) (unknown) Temperature (units (un known) date) 97.6 F unknown) (unknown) (no (unknown) (unknown) Time Seen by (units (u nknown) date) Provider: unknown) 03/19/22 04:01 (unknown) (no (unknown) (unknown) Urine Dip (units (unkn own) date) unknown) (unknown) (no (unknown) (unknown) Urine Specific (units (unknown) date) [place] 1.025 unknown) (unknown) (no (unknown) (unknown) Vital Signs - 8 (units (unknown) date) hr unknown) (unknown) (no (unknown) (unknown) Vital Signs (units (un known) date) unknown) (unknown) (no (unknown) (unknown) Vital signs: (units (u nknown) date) unknown) (unknown) (no (unknown) (unknown) alcohol intake (units (unknown) date) frequency: a few unknown) times a month (unknown) (no (unknown) (unknown) ketorolac 10 mg (units (unknown) date) tablet 10 mg PO unknown) Q6H PRN pain #14 tabs 10/24/21 (unknown) (no (unknown) (unknown) ketorolac 10 mg (units (unknown) date) tablet unknown) (unknown) (no (unknown) (unknown) tobacco type: (units ( unknown) date) cigarettes unknown) Result panel 3 (unknown) (no (unknown) (unknown) (no value) (units (unk nown) date) unknown) (unknown) (no (unknown) (unknown) [id number] (units (unkno wn) date) unknown) (unknown) (no (unknown) (unknown) 04:02 (units (unkno wn) date) unknown) (unknown) (no (unknown) (unknown) 10 mg PO Q6H PRN (units (unknown) date) (Reason: pain) Qty: unknown) 14 0RF (unknown) (no (unknown) (unknown) 03/19/22 04:27 (units (unknown) date) unknown) (unknown) (no (unknown) (unknown) 03/19/22 (units (unkno wn) date) unknown) (unknown) (no (unknown) (unknown) 41-year-old female (units (unknown) date) who is here for unknown) evaluation of right-sided lower back pain, (unknown) (no (unknown) (unknown) Age/Sex: 41 / F (units (unknown) date) unknown) (unknown) (no (unknown) (unknown) Allergies (units (unkn own) date) unknown) (unknown) (no (unknown) (unknown) Allergy/AdvReac (units (unknown) date) Type Severity unknown) Reaction Status Date / Time (unknown) (no (unknown) (unknown) Back/Spine/Pelvis (units (unknown) date) unknown) (unknown) (no (unknown) (unknown) Back: No CVA (units (u nknown) date) tenderness unknown) (unknown) (no (unknown) (unknown) Bedside Urine (units ( unknown) date) Bilirubin - unknown) Negative (unknown) (no (unknown) (unknown) Bedside Urine (units ( unknown) date) Glucose Negative unknown) (unknown) (no (unknown) (unknown) Bedside Urine (units ( unknown) date) Ketone - Negative unknown) (unknown) (no (unknown) (unknown) Bedside Urine (units ( unknown) date) Leukocytes - unknown) Negative (unknown) (no (unknown) (unknown) Bedside Urine (units ( unknown) date) Nitrite - Negative unknown) (unknown) (no (unknown) (unknown) Bedside Urine (units ( unknown) date) Occult Blood unknown) (unknown) (no (unknown) (unknown) Bedside Urine (units ( unknown) date) Protein - Negative unknown) (unknown) (no (unknown) (unknown) Bedside Urine (units ( unknown) date) Urobilinogen - unknown) Negative (unknown) (no (unknown) (unknown) Bedside Urine pH (units (unknown) date) 6.0 unknown) (unknown) (no (unknown) (unknown) Blood Pressure (units (unknown) date) 124/86 03/19/22 unknown) 04:02 (unknown) (no (unknown) (unknown) Blood Pressure (units (unknown) date) 124/86 unknown) (unknown) (no (unknown) (unknown) CT kidney ureter (units (unknown) date) bladder (KUB) Stat unknown) (unknown) (no (unknown) (unknown) Chief complaint: (units (unknown) date) Urogenital-Female unknown) (unknown) (no (unknown) (unknown) Const (units (unkno wn) date) unknown) (unknown) (no (unknown) (unknown) Constitutional (units (unknown) date) unknown) (unknown) (no (unknown) (unknown) Constitutional: (units (unknown) date) Reports system unknown) reviewed and no additional complaints, except as (unknown) (no (unknown) (unknown) Course (units (unkno wn) date) unknown) (unknown) (no (unknown) (unknown) : 1980 (units (unknown) date) Acct:[id number] unknown) (unknown) (no (unknown) (unknown) Date of Service: (units (unknown) date) 03/19/22 unknown) (unknown) (no (unknown) (unknown) Departure (units (unkn own) date) unknown) (unknown) (no (unknown) (unknown) Discharge Plan (units (unknown) date) unknown) (unknown) (no (unknown) (unknown) ED Orders (units (unkn own) date) unknown) (unknown) (no (unknown) (unknown) ER Physician: (units ( unknown) date) Manuel Toure D.O. unknown) (unknown) (no (unknown) (unknown) Emergency Report (units (unknown) date) unknown) (unknown) (no (unknown) (unknown) Esterase (units (unkno wn) date) unknown) (unknown) (no (unknown) (unknown) Exam (units (unkno wn) date) unknown) (unknown) (no (unknown) (unknown) Extrem (units (unkno wn) date) unknown) (unknown) (no (unknown) (unknown) GI (units (unkno wn) date) unknown) (unknown) (no (unknown) (unknown) Gastrointestinal (units (unknown) date) unknown) (unknown) (no (unknown) (unknown) Gastrointestinal: (units (unknown) date) Reports system unknown) reviewed and no additional complaints, except (unknown) (no (unknown) (unknown) General (units (unkno wn) date) unknown) (unknown) (no (unknown) (unknown) General: capillary (units (unknown) date) refill normal unknown) (unknown) (no (unknown) (unknown) General: (units (unkno wn) date) cooperative and unknown) comfortable (unknown) (no (unknown) (unknown) General: no rashes (units (unknown) date) or lesions noted unknown) (unknown) (no (unknown) (unknown) General: patient (units (unknown) date) alert, patient unknown) awake and moves all extremities (unknown) (no (unknown) (unknown) Genitourinary (units ( unknown) date) unknown) (unknown) (no (unknown) (unknown) Genitourinary: (units (unknown) date) Reports system unknown) reviewed and no additional complaints, except as (unknown) (no (unknown) (unknown) HENMT (units (unkno wn) date) unknown) (unknown) (no (unknown) (unknown) HPI - General (units ( unknown) date) Adult unknown) (unknown) (no (unknown) (unknown) HPI narrative: (units (unknown) date) unknown) (unknown) (no (unknown) (unknown) Having frequency (units (unknown) date) and hesitancy. She unknown) is never had a kidney stone in the past. (unknown) (no (unknown) (unknown) Head: normal to (units (unknown) date) inspection and unknown) normocephalic (unknown) (no (unknown) (unknown) History of Present (units (unknown) date) Illness unknown) (unknown) (no (unknown) (unknown) Initial Vital (units ( unknown) date) Signs unknown) (unknown) (no (unknown) (unknown) Initial Vital (units ( unknown) date) Signs: unknown) (unknown) (no (unknown) (unknown) Inspection: normal (units (unknown) date) to inspection unknown) (unknown) (no (unknown) (unknown) Integumentary/Jaz (units (unknown) date) sts unknown) (unknown) (no (unknown) (unknown) [facility] (units (unknown) date) [address] unknown) [place] [address] (unknown) (no (unknown) (unknown) Lab Data (units (unkno wn) date) unknown) (unknown) (no (unknown) (unknown) Labs: (units (unkno wn) date) unknown) (unknown) (no (unknown) (unknown) Limitations: no (units (unknown) date) limitations unknown) (unknown) (no (unknown) (unknown) Medical Decision (units (unknown) date) Making unknown) (unknown) (no (unknown) (unknown) Medication (units (unk nown) date) Instructions unknown) Recorded (unknown) (no (unknown) (unknown) Mode of arrival: (units (unknown) date) Ambulatory unknown) (unknown) (no (unknown) (unknown) Musculoskeletal (units (unknown) date) unknown) (unknown) (no (unknown) (unknown) Musculoskeletal: (units (unknown) date) Reports system unknown) reviewed and no additional complaints, except as (unknown) (no (unknown) (unknown) Neuro (units (unkno wn) date) unknown) (unknown) (no (unknown) (unknown) No Action (units (unkn own) date) unknown) (unknown) (no (unknown) (unknown) No Known Drug (units ( unknown) date) Allergies Allergy unknown) Verified 10/24/21 20:35 (unknown) (no (unknown) (unknown) Ordered: (units (unkno wn) date) unknown) (unknown) (no (unknown) (unknown) Orders (units (unkno wn) date) unknown) (unknown) (no (unknown) (unknown) Oxygen Delivery (units (unknown) date) Method 03/19/22 unknown) 04:02 (unknown) (no (unknown) (unknown) Oxygen Delivery (units (unknown) date) Method Room Air unknown) (unknown) (no (unknown) (unknown) Patient History (units (unknown) date) unknown) (unknown) (no (unknown) (unknown) Patient: (units (unkno wn) date) Claudette Smith A unknown) MR#: [id number] (unknown) (no (unknown) (unknown) Point of Care (units ( unknown) date) Testing unknown) (unknown) (no (unknown) (unknown) Point of care (units ( unknown) date) testing: unknown) (unknown) (no (unknown) (unknown) Test (units (unknown) date) Results Negative unknown) (unknown) (no (unknown) (unknown) Prescriptions: (units (unknown) date) unknown) (unknown) (no (unknown) (unknown) Previous Rx's (units ( unknown) date) unknown) (unknown) (no (unknown) (unknown) Pulse Oximetry 97 (units (unknown) date) 03/19/22 04:02 unknown) (unknown) (no (unknown) (unknown) Pulse Oximetry 97 (units (unknown) date) unknown) (unknown) (no (unknown) (unknown) Pulse Rate 78 (units ( unknown) date) 03/19/22 04:02 unknown) (unknown) (no (unknown) (unknown) Pulse Rate 78 (units ( unknown) date) unknown) (unknown) (no (unknown) (unknown) Related Data (units (u nknown) date) unknown) (unknown) (no (unknown) (unknown) Respiratory Rate (units (unknown) date) 20 03/19/22 04:02 unknown) (unknown) (no (unknown) (unknown) Respiratory Rate (units (unknown) date) 20 unknown) (unknown) (no (unknown) (unknown) Review of Systems (units (unknown) date) unknown) (unknown) (no (unknown) (unknown) She has had urinary (units (unknown) date) tract infections in unknown) the past she thought that maybe this was (unknown) (no (unknown) (unknown) Signed By: (units (unk nown) date) unknown) (unknown) (no (unknown) (unknown) Skin (units (unkno wn) date) unknown) (unknown) (no (unknown) (unknown) Skin/Breast: (units (u nknown) date) Reports system unknown) reviewed and no additional complaints, except as (unknown) (no (unknown) (unknown) Smoking Status: (units (unknown) date) Current every day unknown) smoker (unknown) (no (unknown) (unknown) Social History (units (unknown) date) (Reviewed 03/19/22 unknown) @ 05:16 by Manuel Toure DO) (unknown) (no (unknown) (unknown) Source: patient (units (unknown) date) unknown) (unknown) (no (unknown) (unknown) Stated complaint: (units (unknown) date) abd pain, back pain unknown) (unknown) (no (unknown) (unknown) Substance Use (units ( unknown) date) Type: marijuana unknown) (unknown) (no (unknown) (unknown) Temperature 97.6 F (units (unknown) date) 03/19/22 04:02 unknown) (unknown) (no (unknown) (unknown) Temperature 97.6 F (units (unknown) date) unknown) (unknown) (no (unknown) (unknown) Time Seen by (units (u nknown) date) Provider: 03/19/22 unknown) 04:01 (unknown) (no (unknown) (unknown) Urine Dip (units (unkn own) date) unknown) (unknown) (no (unknown) (unknown) Urine Specific (units (unknown) date) [place] 1.025 unknown) (unknown) (no (unknown) (unknown) Vital Signs - 8 hr (units (unknown) date) unknown) (unknown) (no (unknown) (unknown) Vital Signs (units (un known) date) unknown) (unknown) (no (unknown) (unknown) Vital signs: (units (u nknown) date) unknown) (unknown) (no (unknown) (unknown) a urinary tract (units (unknown) date) infection or kidney unknown) infection. No fevers. She was in quite a (unknown) (no (unknown) (unknown) alcohol intake (units (unknown) date) frequency: a few unknown) times a month (unknown) (no (unknown) (unknown) as documented (units ( unknown) date) unknown) (unknown) (no (unknown) (unknown) back pain for (units ( unknown) date) about the past week unknown) however the rest of her symptoms started (unknown) (no (unknown) (unknown) bit of discomfort (units (unknown) date) in route here to unknown) the emergency department that has improved (unknown) (no (unknown) (unknown) documented (units (unk nown) date) unknown) (unknown) (no (unknown) (unknown) flank pain that (units (unknown) date) radiates around to unknown) the front of her abdomen. She has had lower (unknown) (no (unknown) (unknown) ketorolac 10 mg (units (unknown) date) tablet 10 mg PO Q6H unknown) PRN pain #14 tabs 10/24/21 (unknown) (no (unknown) (unknown) ketorolac 10 mg (units (unknown) date) tablet unknown) (unknown) (no (unknown) (unknown) somewhat. Has not (units (unknown) date) tried anything for unknown) the symptoms prior to arrival (unknown) (no (unknown) (unknown) tobacco type: (units ( unknown) date) cigarettes unknown) (unknown) (no (unknown) (unknown) within the past (units (unknown) date) couple hours. She unknown) states she is having some problems urinating. Result panel 4 (unknown) (no (unknown) (unknown) (no value) (units (unk nown) date) unknown) (unknown) (no (unknown) (unknown) [id number] (units (unkno wn) date) unknown) (unknown) (no (unknown) (unknown) 04:02 (units (unkno wn) date) unknown) (unknown) (no (unknown) (unknown) 10 mg PO Q6H PRN (units (unknown) date) (Reason: pain) Qty: 14 unknown ) 0RF (unknown) (no (unknown) (unknown) 03/19/22 04:27 (units (unknown) date) unknown) (unknown) (no (unknown) (unknown) 03/19/22 (units (unkno wn) date) unknown) (unknown) (no (unknown) (unknown) 41-year-old female who (u nits (unknown) date) is here for evaluation unknown ) of right-sided lower back pain, (unknown) (no (unknown) (unknown) Age/Sex: 41 / F (units (unknown) date) unknown) (unknown) (no (unknown) (unknown) Allergies (units (unkn own) date) unknown) (unknown) (no (unknown) (unknown) Allergy/AdvReac Type (uni ts (unknown) date) Severity Reaction unknown) Status Date / Time (unknown) (no (unknown) (unknown) Back/Spine/Pelvis (units (unknown) date) unknown) (unknown) (no (unknown) (unknown) Back: No CVA (units (u nknown) date) tenderness unknown) (unknown) (no (unknown) (unknown) Bedside Urine (units ( unknown) date) Bilirubin - Negative unknown) (unknown) (no (unknown) (unknown) Bedside Urine Glucose (un its (unknown) date) Negative unknown) (unknown) (no (unknown) (unknown) Bedside Urine Ketone - (u nits (unknown) date) Negative unknown) (unknown) (no (unknown) (unknown) Bedside Urine (units ( unknown) date) Leukocytes - Negative unknown) (unknown) (no (unknown) (unknown) Bedside Urine Nitrite (un its (unknown) date) - Negative unknown) (unknown) (no (unknown) (unknown) Bedside Urine Occult (uni ts (unknown) date) Blood unknown) (unknown) (no (unknown) (unknown) Bedside Urine Protein (un its (unknown) date) - Negative unknown) (unknown) (no (unknown) (unknown) Bedside Urine (units ( unknown) date) Urobilinogen - Negative unknow n) (unknown) (no (unknown) (unknown) Bedside Urine pH 6.0 (uni ts (unknown) date) unknown) (unknown) (no (unknown) (unknown) Blood Pressure 124/86 (un its (unknown) date) 03/19/22 04:02 unknown) (unknown) (no (unknown) (unknown) Blood Pressure 124/86 (un its (unknown) date) unknown) (unknown) (no (unknown) (unknown) CT kidney ureter (units (unknown) date) bladder (KUB) Stat unknown) (unknown) (no (unknown) (unknown) CT scan - (units (unkn own) date) abdomen/pelvis: unknown) (unknown) (no (unknown) (unknown) Chief complaint: (units (unknown) date) Urogenital-Female unknown) (unknown) (no (unknown) (unknown) Const (units (unkno wn) date) unknown) (unknown) (no (unknown) (unknown) Constitutional (units (unknown) date) unknown) (unknown) (no (unknown) (unknown) Constitutional: (units (unknown) date) Reports system reviewed unknow n) and no additional complaints, except as (unknown) (no (unknown) (unknown) Course (units (unkno wn) date) unknown) (unknown) (no (unknown) (unknown) : 1980 (units (unknown) date) Acct:[id number] unknown) (unknown) (no (unknown) (unknown) Date of Service: (units (unknown) date) 03/19/22 unknown) (unknown) (no (unknown) (unknown) Departure (units (unkn own) date) unknown) (unknown) (no (unknown) (unknown) Discharge Plan (units (unknown) date) unknown) (unknown) (no (unknown) (unknown) ED Orders (units (unkn own) date) unknown) (unknown) (no (unknown) (unknown) ER Physician: (units ( unknown) date) Manuel Toure D.O. unknown) (unknown) (no (unknown) (unknown) Emergency Report (units (unknown) date) unknown) (unknown) (no (unknown) (unknown) Esterase (units (unkno wn) date) unknown) (unknown) (no (unknown) (unknown) Exam (units (unkno wn) date) unknown) (unknown) (no (unknown) (unknown) Extrem (units (unkno wn) date) unknown) (unknown) (no (unknown) (unknown) GI (units (unkno wn) date) unknown) (unknown) (no (unknown) (unknown) Gastrointestinal (units (unknown) date) unknown) (unknown) (no (unknown) (unknown) Gastrointestinal: (units (unknown) date) Reports system reviewed unknow n) and no additional complaints, except (unknown) (no (unknown) (unknown) General (units (unkno wn) date) unknown) (unknown) (no (unknown) (unknown) General: capillary (units (unknown) date) refill normal unknown) (unknown) (no (unknown) (unknown) General: cooperative (uni ts (unknown) date) and comfortable unknown) (unknown) (no (unknown) (unknown) General: no rashes or (un its (unknown) date) lesions noted unknown) (unknown) (no (unknown) (unknown) General: patient (units (unknown) date) alert, patient awake unknown) and moves all extremities (unknown) (no (unknown) (unknown) Genitourinary (units ( unknown) date) unknown) (unknown) (no (unknown) (unknown) Genitourinary: Reports (u nits (unknown) date) system reviewed and no unknown ) additional complaints, except as (unknown) (no (unknown) (unknown) HENMT (units (unkno wn) date) unknown) (unknown) (no (unknown) (unknown) HPI - General Adult (unit s (unknown) date) unknown) (unknown) (no (unknown) (unknown) HPI narrative: (units (unknown) date) unknown) (unknown) (no (unknown) (unknown) Having frequency and (uni ts (unknown) date) hesitancy. She is never unknow n) had a kidney stone in the past. (unknown) (no (unknown) (unknown) Head: normal to (units (unknown) date) inspection and unknown) normocephalic (unknown) (no (unknown) (unknown) History of Present (units (unknown) date) Illness unknown) (unknown) (no (unknown) (unknown) Imaging Data (units (u nknown) date) unknown) (unknown) (no (unknown) (unknown) Initial Vital Signs (unit s (unknown) date) unknown) (unknown) (no (unknown) (unknown) Initial Vital Signs: (uni ts (unknown) date) unknown) (unknown) (no (unknown) (unknown) Inspection: normal to (un its (unknown) date) inspection unknown) (unknown) (no (unknown) (unknown) Integumentary/Breasts (un its (unknown) date) unknown) (unknown) (no (unknown) (unknown) [facility] (uni ts (unknown) date) [address] [place] [address] [place], unknown ) [place] [address] (unknown) (no (unknown) (unknown) Lab Data (units (unkno wn) date) unknown) (unknown) (no (unknown) (unknown) Labs: (units (unkno wn) date) unknown) (unknown) (no (unknown) (unknown) Limitations: no (units (unknown) date) limitations unknown) (unknown) (no (unknown) (unknown) Medical Decision (units (unknown) date) Making unknown) (unknown) (no (unknown) (unknown) Medication (units (unk nown) date) Instructions Recorded unknown) (unknown) (no (unknown) (unknown) Mode of arrival: (units (unknown) date) Ambulatory unknown) (unknown) (no (unknown) (unknown) Musculoskeletal (units (unknown) date) unknown) (unknown) (no (unknown) (unknown) Musculoskeletal: (units (unknown) date) Reports system reviewed unknow n) and no additional complaints, except as (unknown) (no (unknown) (unknown) Neuro (units (unkno wn) date) unknown) (unknown) (no (unknown) (unknown) No Action (units (unkn own) date) unknown) (unknown) (no (unknown) (unknown) No Known Drug (units ( unknown) date) Allergies Allergy unknown) Verified 10/24/21 20:35 (unknown) (no (unknown) (unknown) Nonobstructing right (uni ts (unknown) date) nephrolithiasis unknown) (unknown) (no (unknown) (unknown) Ordered: (units (unkno wn) date) unknown) (unknown) (no (unknown) (unknown) Orders (units (unkno wn) date) unknown) (unknown) (no (unknown) (unknown) Oxygen Delivery Method (u nits (unknown) date) 03/19/22 04:02 unknown) (unknown) (no (unknown) (unknown) Oxygen Delivery Method (u nits (unknown) date) Room Air unknown) (unknown) (no (unknown) (unknown) Patient History (units (unknown) date) unknown) (unknown) (no (unknown) (unknown) Patient: (units (unkno wn) date) Claudette Smith MR#: unknown) M0 (unknown) (no (unknown) (unknown) Point of Care Testing (un its (unknown) date) unknown) (unknown) (no (unknown) (unknown) Point of care testing: (u nits (unknown) date) unknown) (unknown) (no (unknown) (unknown) Test Results (u nits (unknown) date) Negative unknown) (unknown) (no (unknown) (unknown) Prescriptions: (units (unknown) date) unknown) (unknown) (no (unknown) (unknown) Previous Rx's (units ( unknown) date) unknown) (unknown) (no (unknown) (unknown) Pulse Oximetry 97 (units (unknown) date) 03/19/22 04:02 unknown) (unknown) (no (unknown) (unknown) Pulse Oximetry 97 (units (unknown) date) unknown) (unknown) (no (unknown) (unknown) Pulse Rate 78 03/19/22 (u nits (unknown) date) 04:02 unknown) (unknown) (no (unknown) (unknown) Pulse Rate 78 (units ( unknown) date) unknown) (unknown) (no (unknown) (unknown) Radiologist's (units ( unknown) date) Impression: unknown) (unknown) (no (unknown) (unknown) Recently passed right (un its (unknown) date) renal calculus with unknown) mild residual hydroureteronephrosis (unknown) (no (unknown) (unknown) Related Data (units (u nknown) date) unknown) (unknown) (no (unknown) (unknown) Respiratory Rate 20 (unit s (unknown) date) 03/19/22 04:02 unknown) (unknown) (no (unknown) (unknown) Respiratory Rate 20 (unit s (unknown) date) unknown) (unknown) (no (unknown) (unknown) Review of Systems (units (unknown) date) unknown) (unknown) (no (unknown) (unknown) She has had urinary (units (unknown) date) tract infections in the unknow n) past she thought that maybe this was (unknown) (no (unknown) (unknown) Signed By: (units (unk nown) date) unknown) (unknown) (no (unknown) (unknown) Skin (units (unkno wn) date) unknown) (unknown) (no (unknown) (unknown) Skin/Breast: Reports (uni ts (unknown) date) system reviewed and no unknown ) additional complaints, except as (unknown) (no (unknown) (unknown) Smoking Status: (units (unknown) date) Current every day unknown) smoker (unknown) (no (unknown) (unknown) Social History (units (unknown) date) (Reviewed 03/19/22 @ unknown) 05:16 by Manuel Toure DO) (unknown) (no (unknown) (unknown) Source: patient (units (unknown) date) unknown) (unknown) (no (unknown) (unknown) Stated complaint: abd (un its (unknown) date) pain, back pain unknown) (unknown) (no (unknown) (unknown) Substance Use Type: (unit s (unknown) date) marijuana unknown) (unknown) (no (unknown) (unknown) Temperature 97.6 F (units (unknown) date) 03/19/22 04:02 unknown) (unknown) (no (unknown) (unknown) Temperature 97.6 F (units (unknown) date) unknown) (unknown) (no (unknown) (unknown) Time Seen by Provider: (u nits (unknown) date) 03/19/22 04:01 unknown) (unknown) (no (unknown) (unknown) Urine Dip (units (unkn own) date) unknown) (unknown) (no (unknown) (unknown) Urine Specific [place] (u nits (unknown) date) 1.025 unknown) (unknown) (no (unknown) (unknown) Vital Signs - 8 hr (units (unknown) date) unknown) (unknown) (no (unknown) (unknown) Vital Signs (units (un known) date) unknown) (unknown) (no (unknown) (unknown) Vital signs: (units (u nknown) date) unknown) (unknown) (no (unknown) (unknown) a urinary tract (units (unknown) date) infection or kidney unknown) infection. No fevers. She was in quite a (unknown) (no (unknown) (unknown) alcohol intake (units (unknown) date) frequency: a few times unknown ) a month (unknown) (no (unknown) (unknown) as documented (units ( unknown) date) unknown) (unknown) (no (unknown) (unknown) back pain for about (unit s (unknown) date) the past week however unknown) the rest of her symptoms started (unknown) (no (unknown) (unknown) bit of discomfort in (uni ts (unknown) date) route here to the unknown) emergency department that has improved (unknown) (no (unknown) (unknown) documented (units (unk nown) date) unknown) (unknown) (no (unknown) (unknown) flank pain that (units (unknown) date) radiates around to the unknown ) front of her abdomen. She has had lower (unknown) (no (unknown) (unknown) ketorolac 10 mg tablet (u nits (unknown) date) 10 mg PO Q6H PRN pain unknown) #14 tabs 10/24/21 (unknown) (no (unknown) (unknown) ketorolac 10 mg tablet (u nits (unknown) date) unknown) (unknown) (no (unknown) (unknown) somewhat. Has not (units (unknown) date) tried anything for the unknown ) symptoms prior to arrival (unknown) (no (unknown) (unknown) tobacco type: (units ( unknown) date) cigarettes unknown) (unknown) (no (unknown) (unknown) within the past couple (u nits (unknown) date) hours. She states she unknown) is having some problems urinating. Result panel 5 (unknown) (no (unknown) (unknown) (no value) (units (unk nown) date) unknown) (unknown) (no (unknown) (unknown) <Electronically signed (u nits (unknown) date) by Manuel Toure, unknown) D.O.> (unknown) (no (unknown) (unknown) [id number] (units (unkno wn) date) unknown) (unknown) (no (unknown) (unknown) 04:02 (units (unkno wn) date) unknown) (unknown) (no (unknown) (unknown) 10 mg PO Q6H PRN (units (unknown) date) (Reason: pain) Qty: 14 unknown ) 0RF (unknown) (no (unknown) (unknown) 03/19/22 04:27 (units (unknown) date) unknown) (unknown) (no (unknown) (unknown) 03/19/22 0607 (units ( unknown) date) unknown) (unknown) (no (unknown) (unknown) 03/19/22 (units (unkno wn) date) unknown) (unknown) (no (unknown) (unknown) 3 cm right adrenal (units (unknown) date) cystic mass unknown) (unknown) (no (unknown) (unknown) 41-year-old female who (u nits (unknown) date) is here for evaluation unknown ) of right-sided lower back pain, (unknown) (no (unknown) (unknown) Activity (units (unkno wn) date) Restrictions/Additional unknow n) Instructions: (unknown) (no (unknown) (unknown) Age/Sex: 41 / F (units (unknown) date) unknown) (unknown) (no (unknown) (unknown) Allergies (units (unkn own) date) unknown) (unknown) (no (unknown) (unknown) Allergy/AdvReac Type (uni ts (unknown) date) Severity Reaction unknown) Status Date / Time (unknown) (no (unknown) (unknown) Back/Spine/Pelvis (units (unknown) date) unknown) (unknown) (no (unknown) (unknown) Back: No CVA (units (u nknown) date) tenderness unknown) (unknown) (no (unknown) (unknown) Bedside Urine (units ( unknown) date) Bilirubin - Negative unknown) (unknown) (no (unknown) (unknown) Bedside Urine Glucose (un its (unknown) date) Negative unknown) (unknown) (no (unknown) (unknown) Bedside Urine Ketone - (u nits (unknown) date) Negative unknown) (unknown) (no (unknown) (unknown) Bedside Urine (units ( unknown) date) Leukocytes - Negative unknown) (unknown) (no (unknown) (unknown) Bedside Urine Nitrite (un its (unknown) date) - Negative unknown) (unknown) (no (unknown) (unknown) Bedside Urine Occult (uni ts (unknown) date) Blood unknown) (unknown) (no (unknown) (unknown) Bedside Urine Protein (un its (unknown) date) - Negative unknown) (unknown) (no (unknown) (unknown) Bedside Urine (units ( unknown) date) Urobilinogen - Negative unknow n) (unknown) (no (unknown) (unknown) Bedside Urine pH 6.0 (uni ts (unknown) date) unknown) (unknown) (no (unknown) (unknown) Blood Pressure 124/86 (un its (unknown) date) 03/19/22 04:02 unknown) (unknown) (no (unknown) (unknown) Blood Pressure 124/86 (un its (unknown) date) unknown) (unknown) (no (unknown) (unknown) CT kidney ureter (units (unknown) date) bladder (KUB) Stat unknown) (unknown) (no (unknown) (unknown) CT scan - (units (unkn own) date) abdomen/pelvis: unknown) (unknown) (no (unknown) (unknown) Chief complaint: (units (unknown) date) Urogenital-Female unknown) (unknown) (no (unknown) (unknown) Clinical Impression: (uni ts (unknown) date) unknown) (unknown) (no (unknown) (unknown) Const (units (unkno wn) date) unknown) (unknown) (no (unknown) (unknown) Constitutional (units (unknown) date) unknown) (unknown) (no (unknown) (unknown) Constitutional: (units (unknown) date) Reports system reviewed unknow n) and no additional complaints, except as (unknown) (no (unknown) (unknown) Course (units (unkno wn) date) unknown) (unknown) (no (unknown) (unknown) : 1980 (units (unknown) date) Acct:[id number] unknown) (unknown) (no (unknown) (unknown) Date of Service: (units (unknown) date) 03/19/22 unknown) (unknown) (no (unknown) (unknown) Departure (units (unkn own) date) unknown) (unknown) (no (unknown) (unknown) Discharge Plan (units (unknown) date) unknown) (unknown) (no (unknown) (unknown) ED Orders (units (unkn own) date) unknown) (unknown) (no (unknown) (unknown) ER Physician: (units ( unknown) date) Manuel Toure D.O. unknown) (unknown) (no (unknown) (unknown) Emergency Report (units (unknown) date) unknown) (unknown) (no (unknown) (unknown) Esterase (units (unkno wn) date) unknown) (unknown) (no (unknown) (unknown) Exam (units (unkno wn) date) unknown) (unknown) (no (unknown) (unknown) Extrem (units (unkno wn) date) unknown) (unknown) (no (unknown) (unknown) GI (units (unkno wn) date) unknown) (unknown) (no (unknown) (unknown) Gastrointestinal (units (unknown) date) unknown) (unknown) (no (unknown) (unknown) Gastrointestinal: (units (unknown) date) Reports system reviewed unknow n) and no additional complaints, except (unknown) (no (unknown) (unknown) General (units (unkno wn) date) unknown) (unknown) (no (unknown) (unknown) General: capillary (units (unknown) date) refill normal unknown) (unknown) (no (unknown) (unknown) General: cooperative (uni ts (unknown) date) and comfortable unknown) (unknown) (no (unknown) (unknown) General: no rashes or (un its (unknown) date) lesions noted unknown) (unknown) (no (unknown) (unknown) General: patient (units (unknown) date) alert, patient awake unknown) and moves all extremities (unknown) (no (unknown) (unknown) Genitourinary (units ( unknown) date) unknown) (unknown) (no (unknown) (unknown) Genitourinary: Reports (u nits (unknown) date) system reviewed and no unknown ) additional complaints, except as (unknown) (no (unknown) (unknown) HENMT (units (unkno wn) date) unknown) (unknown) (no (unknown) (unknown) HPI - General Adult (unit s (unknown) date) unknown) (unknown) (no (unknown) (unknown) HPI narrative: (units (unknown) date) unknown) (unknown) (no (unknown) (unknown) Having frequency and (uni ts (unknown) date) hesitancy. She is never unknow n) had a kidney stone in the past. (unknown) (no (unknown) (unknown) Head: normal to (units (unknown) date) inspection and unknown) normocephalic (unknown) (no (unknown) (unknown) History of Present (units (unknown) date) Illness unknown) (unknown) (no (unknown) (unknown) Imaging Data (units (u nknown) date) unknown) (unknown) (no (unknown) (unknown) Initial Vital Signs (unit s (unknown) date) unknown) (unknown) (no (unknown) (unknown) Initial Vital Signs: (uni ts (unknown) date) unknown) (unknown) (no (unknown) (unknown) Inspection: normal to (un its (unknown) date) inspection unknown) (unknown) (no (unknown) (unknown) Instructions: DI for (uni ts (unknown) date) Kidney Stones unknown) (unknown) (no (unknown) (unknown) Integumentary/Breasts (un its (unknown) date) unknown) (unknown) (no (unknown) (unknown) [facility] (uni ts (unknown) date) [address] [place], unknown ) [place] [address] (unknown) (no (unknown) (unknown) Lab Data (units (unkno wn) date) unknown) (unknown) (no (unknown) (unknown) Labs: (units (unkno wn) date) unknown) (unknown) (no (unknown) (unknown) Limitations: no (units (unknown) date) limitations unknown) (unknown) (no (unknown) (unknown) MDM Narrative (units ( unknown) date) unknown) (unknown) (no (unknown) (unknown) Medical Decision (units (unknown) date) Making unknown) (unknown) (no (unknown) (unknown) Medical decision (units (unknown) date) making narrative: unknown) (unknown) (no (unknown) (unknown) Medication (units (unk nown) date) Instructions Recorded unknown) (unknown) (no (unknown) (unknown) Mode of arrival: (units (unknown) date) Ambulatory unknown) (unknown) (no (unknown) (unknown) Musculoskeletal (units (unknown) date) unknown) (unknown) (no (unknown) (unknown) Musculoskeletal: (units (unknown) date) Reports system reviewed unknow n) and no additional complaints, except as (unknown) (no (unknown) (unknown) Neuro (units (unkno wn) date) unknown) (unknown) (no (unknown) (unknown) No Action (units (unkn own) date) unknown) (unknown) (no (unknown) (unknown) No Known Drug (units ( unknown) date) Allergies Allergy unknown) Verified 10/24/21 20:35 (unknown) (no (unknown) (unknown) Nonobstructing right (uni ts (unknown) date) nephrolithiasis unknown) (unknown) (no (unknown) (unknown) Ordered: (units (unkno wn) date) unknown) (unknown) (no (unknown) (unknown) Orders (units (unkno wn) date) unknown) (unknown) (no (unknown) (unknown) Oxygen Delivery Method (u nits (unknown) date) 03/19/22 04:02 unknown) (unknown) (no (unknown) (unknown) Oxygen Delivery Method (u nits (unknown) date) Room Air unknown) (unknown) (no (unknown) (unknown) Patient Disposition: (uni ts (unknown) date) Home unknown) (unknown) (no (unknown) (unknown) Patient History (units (unknown) date) unknown) (unknown) (no (unknown) (unknown) Patient: (units (unkno wn) date) Claudette Smith MR#: unknown) M0 (unknown) (no (unknown) (unknown) Point of Care Testing (un its (unknown) date) unknown) (unknown) (no (unknown) (unknown) Point of care testing: (u nits (unknown) date) unknown) (unknown) (no (unknown) (unknown) Test Results (u nits (unknown) date) Negative unknown) (unknown) (no (unknown) (unknown) Prescriptions: (units (unknown) date) unknown) (unknown) (no (unknown) (unknown) Previous Rx's (units ( unknown) date) unknown) (unknown) (no (unknown) (unknown) Pulse Oximetry 97 (units (unknown) date) 03/19/22 04:02 unknown) (unknown) (no (unknown) (unknown) Pulse Oximetry 97 (units (unknown) date) unknown) (unknown) (no (unknown) (unknown) Pulse Rate 78 03/19/22 (u nits (unknown) date) 04:02 unknown) (unknown) (no (unknown) (unknown) Pulse Rate 78 (units ( unknown) date) unknown) (unknown) (no (unknown) (unknown) Radiologist's (units ( unknown) date) Impression: unknown) (unknown) (no (unknown) (unknown) Recently passed right (un its (unknown) date) renal calculus with unknown) mild residual hydroureteronephrosis (unknown) (no (unknown) (unknown) Recommend that she (units (unknown) date) stay hydrated. Contact unknown ) your primary doctor for follow-up. (unknown) (no (unknown) (unknown) Related Data (units (u nknown) date) unknown) (unknown) (no (unknown) (unknown) Renal colic on right (uni ts (unknown) date) side unknown) (unknown) (no (unknown) (unknown) Respiratory Rate 20 (unit s (unknown) date) 03/19/22 04:02 unknown) (unknown) (no (unknown) (unknown) Respiratory Rate 20 (unit s (unknown) date) unknown) (unknown) (no (unknown) (unknown) Return to the (units ( unknown) date) emergency department unknown) for any new or worsening symptoms. (unknown) (no (unknown) (unknown) Review of Systems (units (unknown) date) unknown) (unknown) (no (unknown) (unknown) She has had urinary (units (unknown) date) tract infections in the unknow n) past she thought that maybe this was (unknown) (no (unknown) (unknown) Signed By: (units (unk nown) date) unknown) (unknown) (no (unknown) (unknown) Skin (units (unkno wn) date) unknown) (unknown) (no (unknown) (unknown) Skin/Breast: Reports (uni ts (unknown) date) system reviewed and no unknown ) additional complaints, except as (unknown) (no (unknown) (unknown) Smoking Status: (units (unknown) date) Current every day unknown) smoker (unknown) (no (unknown) (unknown) Social History (units (unknown) date) (Reviewed 03/19/22 @ unknown) 05:16 by Manuel Toure DO) (unknown) (no (unknown) (unknown) Source: patient (units (unknown) date) unknown) (unknown) (no (unknown) (unknown) Stand Alone Forms: (units (unknown) date) Work Release Note unknown) (unknown) (no (unknown) (unknown) Stated complaint: abd (un its (unknown) date) pain, back pain unknown) (unknown) (no (unknown) (unknown) Substance Use Type: (unit s (unknown) date) marijuana unknown) (unknown) (no (unknown) (unknown) Temperature 97.6 F (units (unknown) date) 03/19/22 04:02 unknown) (unknown) (no (unknown) (unknown) Temperature 97.6 F (units (unknown) date) unknown) (unknown) (no (unknown) (unknown) Time Seen by Provider: (u nits (unknown) date) 03/19/22 04:01 unknown) (unknown) (no (unknown) (unknown) Urinalysis today does (un its (unknown) date) show blood. No signs of unknow n) infection. CT scan shows (unknown) (no (unknown) (unknown) Urine Dip (units (unkn own) date) unknown) (unknown) (no (unknown) (unknown) Urine Specific [place] (u nits (unknown) date) 1.025 unknown) (unknown) (no (unknown) (unknown) Vital Signs - 8 hr (units (unknown) date) unknown) (unknown) (no (unknown) (unknown) Vital Signs (units (un known) date) unknown) (unknown) (no (unknown) (unknown) Vital signs: (units (u nknown) date) unknown) (unknown) (no (unknown) (unknown) a urinary tract (units (unknown) date) infection or kidney unknown) infection. No fevers. She was in quite a (unknown) (no (unknown) (unknown) agreement. (units (unk nown) date) unknown) (unknown) (no (unknown) (unknown) alcohol intake (units (unknown) date) frequency: a few times unknown ) a month (unknown) (no (unknown) (unknown) as documented (units ( unknown) date) unknown) (unknown) (no (unknown) (unknown) back pain for about (unit s (unknown) date) the past week however unknown) the rest of her symptoms started (unknown) (no (unknown) (unknown) bit of discomfort in (uni ts (unknown) date) route here to the unknown) emergency department that has improved (unknown) (no (unknown) (unknown) ding of a 3 cm right (uni ts (unknown) date) adrenal cystic mass. unknown) Patient was informed of this. She (unknown) (no (unknown) (unknown) documented (units (unk nown) date) unknown) (unknown) (no (unknown) (unknown) findings consistent (unit s (unknown) date) with recently passed unknown) stone. She also has an incidental fin (unknown) (no (unknown) (unknown) flank pain that (units (unknown) date) radiates around to the unknown ) front of her abdomen. She has had lower (unknown) (no (unknown) (unknown) ketorolac 10 mg tablet (u nits (unknown) date) 10 mg PO Q6H PRN pain unknown) #14 tabs 10/24/21 (unknown) (no (unknown) (unknown) ketorolac 10 mg tablet (u nits (unknown) date) unknown) (unknown) (no (unknown) (unknown) mass. She will talk (unit s (unknown) date) with her primary doctor unknow n) about this. We discussed return (unknown) (no (unknown) (unknown) precautions and (units (unknown) date) follow-up instructions. unknow n) She expressed understanding and (unknown) (no (unknown) (unknown) somewhat. Has not (units (unknown) date) tried anything for the unknown ) symptoms prior to arrival (unknown) (no (unknown) (unknown) tobacco type: (units ( unknown) date) cigarettes unknown) (unknown) (no (unknown) (unknown) was able to pull up a (uni ts (unknown) date) prior CT from November unknow n) 2020 which showed the same size (unknown) (no (unknown) (unknown) within the past couple (u nits (unknown) date) hours. She states she unknown) is having some problems urinating. Social History date description facility 2022-03-19 00:00 Smokes tobacco daily ([facility] Vital Signs date measurement value units 2022-03-19 00:00 BMI 38.0 kg/m2 2022-03-19 00:00 BP_diastolic 79 mmHg 2022-03-19 00:00 BP_systolic 122 mmHg 2022-03-19 00:00 heart_rate 76 /min 2022-03-19 00:00 height_metric 182.88 cm 2022-03-19 00:00 height_standard 72 in 2022-03-19 00:00 o2_saturation 98 % 2022-03-19 00:00 respiration_rate 20 /min 2022-03-19 00:00 temperature_metric 36.44 C 2022-03-19 00:00 temperature_standard 97.6 F 2022-03-19 00:00 weight_metric 127 kg 2022-03-19 00:00 weight_standard 279.99 lb
--- NOTE | 2022-04-17 11:36 | CT Report ---
PROCEDURE: ABDOMEN/PELVIS WO INDICATIONS: persistent right flank pain TECHNIQUE: Noncontrast 5 mm thick sections acquired from the diaphragms to the symphysis. 5 mm coronal and sagi ttal reformats were then performed. For radiation dose reduction, the following was used: automated exposure control, adjustment of mA and/or kV according to patient size. COMPARISON: 12/12/2020. FINDINGS: Image quality: Excellent. Lung bases: Bibasilar atelectasis. Heart size is normal. Urinary system: Both kidneys are normal in size. There is a nonobstructing 4 mm right renal stone. No hydronephrosis. No perinephric stranding. Left kidney is normal in size and appearance. No left-sided renal stone. Both ureters appear non-dilated throughout their expected courses. No ureteral stones. Bladder wall thickness is normal; no calcified bladder stones. Other solid organs: Liver is normal in size. Gallbladder is surgically absent. Pancreas is normal in contours. Spleen is normal in size. Stable appearance of 3.0 cm low-attenuation right adrenal nodule, likely representing an adenoma. No nodules noted on the left. Peritoneum and bowel: Unenhanced bowel loops demonstrate normal wall thickness and caliber. Normal appendix. No free fluid or air. Nodes and vessels: No retroperitoneal or mesenteric adenopathy by size criteria. Aorta and inferior vena cava are normal in caliber. Abdominal wall: Stable postsurgical changes of prior ventral hernia repair. Pelvis: No free pelvic fluid. No inguinal hernias. No pelvice adenopathy. Bones: No suspicious bony lesions. No acute vertebral body compression fractures. IMPRESSION: 1. Nonobstructing 4 mm right renal stone. No evidence for hydronephrosis or acute inflammatory change s within the imaged upper and lower urinary tract. 2. Normal appendix. 3. Bibasilar atelectasis. 4. Other chronic findings as above. Reviewed by: Dale Duarte MD on 04/17/2022 11:35 AM PST Approved by: Dale Duarte MD on 04/17/2022 11:35 AM PST Station ID: [id number]
== END 2022-04-17 12:56 | disposition home or self-care (01) ==
LOC: ED 09:59
DX: M54.50 Low back pain, unspecified (principal); R11.0 Nausea; F17.200 Nicotine dependence, unspecified, uncomplicated
CPT/HCPCS: 36415; 74176; 80053; 81003; 81025; 83690; 85025; 96365; 96375; 99284; A9270; J7040; 81001; 87086